=== PATIENT | male | born 1955 | race Caucasian/White ===

== ENCOUNTER → 2017-07-26 | Outpatient (CLI) | payer BC ==
[~2017-07-26] MED LIST: GADAVIST IV PRN
--- NOTE | 2017-07-26 11:21 | DIAGNOSTIC IMAGING REPORT ---
PROSTATE MRI COMBO CLINICAL HISTORY: 61 years-old Male presenting with ELEVATED PSA PSA 6.2 03/19. PSA 6.2 ng/mL. TECHNIQUE: Multisequence, multiplanar MR imaging of the prostate was performed before and after the administration of intravenous contrast. Additional postprocessing was performed on a separate [employer] workstation by the radiologist for 3-D volumetric segmentation of the prostate and contouring of region(s) of interest ([id number]) for targeting. COMPARISON: None. FINDINGS: Prostate: The prostate measures 6.4 x 4.7 x 5.7 cm (DynaCAD prostate boundary segmentation volume 88 mL). Moderate changes of benign prostatic hyperplasia. Precontrast T1 weighted imaging demonstrates no evidence of intrinsic T1 hyperintensity to suggest hemorrhage. Asymmetric atrophy of the left seminal vesicle noted. No suspicious lesion is apparent in the transition or peripheral zones. Focal ovoid heterogeneously T2 hypointense focus in the left transition zone in the mid gland without corresponding diffusion abnormality, likely stromal predominant BPH nodule. Bladder: Bladder wall thickening likely indicating chronic outlet obstruction. Bowel: Visualized portion of the rectum normal. Peritoneum: No free fluid in the pelvis. Right inguinal hernia is noted containing the right testicle and trace fluid. Lymph nodes: No lymphadenopathy in the visualized portion of the pelvis. Vasculature: Iliac vessels patent. Osseous structures: Normal bone marrow signal intensity. IMPRESSION: 1. No suspicious lesions for targeted biopsy. 2. Benign prostatic hyperplasia. 3. Right inguinal hernia is noted containing the right testicle. Electronically signed by: Blaze Chery M.D. 07/26/2017 11:20 AM Dictated Date/Time: 07/26/2017 10:45 AM
== END | disposition home or self-care (01) ==
LOC: C.MRIBC 08:41
PROVIDERS: ATTEND Urology
DX: R97.20 Elevated prostate specific antigen [PSA] (principal); N40.0 Benign prostatic hyperplasia without lower urinary tract symptoms; K40.90 Unilateral inguinal hernia, without obstruction or gangrene, not specified as recurrent

== ENCOUNTER → 2018-06-02 | Outpatient (CLI) | payer OTHER ==
--- NOTE | 2018-06-02 09:03 | DIAGNOSTIC IMAGING REPORT ---
PELVIS/BILATERAL HIP 2 VIEWS CLINICAL HISTORY: B/L HIP PAIN pain COMPARISON STUDY: No previous studies for comparison. FINDINGS: Mild/moderate degenerative change of the hip joints bilaterally. Mild peripheral osteophytic reaction bilaterally. No evidence for acetabular protrusion. No evidence for fracture or dislocation. IMPRESSION: Moderate degenerative changes of hips bilaterally. No acute process. The above report was generated using voice recognition software. It may contain grammatical, syntax or spelling errors. Electronically signed by: Doyle Anderson M.D. 06/02/2018 9:02 AM Dictated Date/Time: 06/02/2018 9:01 AM
== END | disposition home or self-care (01) ==
LOC: C.RAD1850 08:43
PROVIDERS: ATTEND Family Medicine
DX: M25.552 Pain in left hip (principal)

== ENCOUNTER 2022-09-26 05:13 | Observation (INO) ==
--- NOTE | 2022-09-06 09:56 | PAT Medication Instructions ---
Medication Instructions Date of Service September 06, 2022 Home Medications Medication Instructions Recorded lansoprazole 30 mg capsule,delayed See Rx Instructions .Route 12/15/19 release .COMPLEX #90 caps alfuzosin 10 mg tablet,extended 10 mg PO DAILY #90 tabs 04/06/22 release 24 hr finasteride 5 mg tablet 5 mg PO DAILY #90 tabs 04/06/22 azelastine-fluticasone 137 mcg-50 mcg/spray nasal spray 1 spray intranasal BID PRN montelukast 10 mg tablet 10 mg PO HS multivitamin 1 tab PO QAM simvastatin 20 mg tablet 20 mg PO HS trazodone 50 mg tablet 25 mg PO HS lansoprazole 30 mg capsule,delayed release See Rx Instructions .Route .COMPLEX alfuzosin 10 mg tablet,extended release 24 hr 10 mg PO DAILY finasteride 5 mg tablet 5 mg PO DAILY albuterol 90 mcg/actuation aerosol inhaler 90 mcg inhalation QID PRN fluticasone propionate 50 mcg/actuation nasal spray,suspension 1 spray intranasal Q12H PRN naproxen sodium 220 mg tablet (Aleve) 220 mg PO Q8H PRN omega-3 fatty acids 1,000 mg PO QAM Continue as directed lansoprazole 30 mg capsule,delayed release See Rx Instructions .Route .COMPLEX alfuzosin 10 mg tablet,extended release 24 hr 10 mg PO DAILY finasteride 5 mg tablet 5 mg PO DAILY ASK your surgeon for instructions naproxen sodium 220 mg tablet (Aleve) 220 mg PO Q8H PRN STOP taking 2 weeks before surgery omega-3 fatty acids 1,000 mg PO QAM DO NOT take the morning of surgery multivitamin 1 tab PO QAM Take morning of surgery With a small sip of water, OTHERWISE NOTHING TO EAT OR DRINK AFTER MIDNIGHT: azelastine-fluticasone 137 mcg-50 mcg/spray nasal spray 1 spray intranasal BID PRN(if needed) albuterol 90 mcg/actuation aerosol inhaler 90 mcg inhalation QID PRN(use if needed; please bring with you to hospital day of surgery if possible) fluticasone propionate 50 mcg/actuation nasal spray,suspension 1 spray intranasal Q12H PRN(if needed) Take evening before surgery azelastine-fluticasone 137 mcg-50 mcg/spray nasal spray 1 spray intranasal BID PRN(if needed) montelukast 10 mg tablet 10 mg PO HS simvastatin 20 mg tablet 20 mg PO HS trazodone 50 mg tablet 25 mg PO HS albuterol 90 mcg/actuation aerosol inhaler 90 mcg inhalation QID PRN(if needed) fluticasone propionate 50 mcg/actuation nasal spray,suspension 1 spray intranasal Q12H PRN(if needed) Other Notes If you have any questions please call us at [phone] or [phone] or [phone] or [phone]
--- NOTE | 2022-09-10 10:43 | Anesthesiology Consultation ---
Date of Service September 10, 2022 Assessment & Plan (1) Encounter for pre-operative examination: - will attempt to obtain copy of Holter monitor report completed earlier this year at PCP office. Chart Review Chart Review: Pending: Refer to Additional Notes / Consult section and Patient seen in Pre Admission Testing Teaching & Discussion Pre-Anesthesia Teaching/Discussion Notes: Instructed NPO after midnight before surgery, except medications with 15 cc of water. Medication instructions provided according to the PAT guidelines. History Surgery Operation Date: 09/26/22 07:00 Proposed Procedures p Left Total Hip Arthroplasty - Herber Swartz MD Height/Weight Height: 6 ft 2 in Weight: 86.183 kg Allergies Allergy/AdvReac Type Severity Reaction Status Date / Time oxycodone Allergy Mild Hives Verified 09/06/22 08:31 Medications Home Medications Medication Instructions Recorded Confirmed Last Taken azelastine-fluticasone 137 mcg-50 1 spray intranasal BID PRN SINUS 07/25/18 09/06/22 07/27/18 mcg/spray nasal spray CONGESTION montelukast 10 mg tablet 10 mg PO HS 07/25/18 09/06/22 07/26/18 multivitamin 1 tab PO QAM 07/25/18 09/06/22 07/27/18 simvastatin 20 mg tablet 20 mg PO HS 07/25/18 09/06/22 07/26/18 trazodone 50 mg tablet 25 mg PO HS 07/25/18 09/06/22 07/27/18 alfuzosin 10 mg tablet,extended 10 mg PO DAILY #90 tabs 04/06/22 09/06/22 Unknown release 24 hr finasteride 5 mg tablet 5 mg PO DAILY #90 tabs 04/06/22 09/06/22 Unknown albuterol 90 mcg/actuation aerosol 90 mcg inhalation QID PRN 09/06/22 09/06/22 Unknown inhaler Shortness Of Breath fluticasone propionate 50 1 spray intranasal Q12H PRN 09/06/22 09/06/22 Unknown mcg/actuation nasal Allergy Symptoms spray,suspension naproxen sodium 220 mg tablet 220 mg PO Q8H PRN Pain 09/06/22 09/06/22 Unknown (Aleve) omega-3 fatty acids 1,000 mg PO QAM 09/06/22 09/06/22 Unknown Past Medical History Medical History (Updated 09/10/22 @ 10:50 by Marialuisa Conley PA-C) BPH (benign prostatic hyperplasia) GERD (gastroesophageal reflux disease) controlled, stable per pt Hiatal hernia Osteoarthritis Palpitations (summer 2021) stress induced, wore a holter monitor, denies recurrence - does not follow w/ cardio- done thru PCP- Dr Schafer office Seasonal allergies uses inhaler prn-last rescue inhaler use > 1 yr ago Patient denies h/o stroke, seizures, heart attack, heart failure, DM, HTN, blood clots or blood transfusions. Exercise / Class Metabolic Activity II 4-5 Yardwork/Stairs/Walk up hill (denies CP or SOB with 1 FOS) Past Family History Family History Family/Other No problems noted. Other No family history of adverse response to anesthesia Denies family history of Crohn's disease Colorectal cancer Ulcerative colitis Past Surgical History Surgical History History of arthroscopy X 2 -LEFT KNEE History of carpal tunnel release LEFT WRIST History of colonoscopy (07/2018) History of endoscopic sinus surgery History of esophagogastroduodenoscopy (EGD) History of open reduction and internal fixation (ORIF) procedure RIGHT WRIST Hx of foot surgery GREAT TOE Past Anesthesia History No Hx of Anesthesia Complications and No Family Hx of Anesthesia Complications History of PONV No Hx of PONV and No Hx of Motion Sickness Social History Smoking Status: Never smoker Do You Dip or Chew Tobacco: No Hx Alcohol Use: Yes Alcohol type: hard liquor alcohol intake frequency: 0-2 drinks per day Hx Substance Use: No substance use type: does not use Review of Systems Snoring, denies witnessed apneas. Patient denies chest pain, shortness of breath, dyspnea on exertion, fever, chills, cough, or wheezing. Physical Exam Vital Signs Vitals BP 125/80 P 60 TEMP 98.3 SP02 97% on RA RESP 18 Physical Full cervical extension range of motion without pain TMD 3.5 finger breadths Mallampati Score 1 Dentition: intact, denies chipped or loose teeth, caps/crowns, implants or bridges Lungs: normal respiratory effort. Clear throughout to auscultation, no adventitious breath sounds Cardiac: regular rate and rhythm, no murmurs noted Carotid arteries: negative bruit bilat Lab Results Anesthesia Preop Results Results Anesthesia Widget: WBC 3.46 K/ul (4.8-10.8) L 09/10/22 Hgb 14.7 g/dl (14.0-18.0) 09/10/22 Hct 41.8 % (40.1-51.0) 09/10/22 Plt 233 K/uL (130-400) 09/10/22 Na 140 mmol/L (136-145) 09/10/22 K 4.1 mmol/L (3.5-5.1) 09/10/22 Cl 105 mmol/L (98-107) 09/10/22 CO2 32 mmol/L (21-32) 09/10/22 BUN 18 mg/dl (6-23) 09/10/22 Creat 0.87 mg/dl (0.6-1.4) 09/10/22 Glucose Level 93 mg/dl (70-99(Fasting)) 09/10/22 PT 11.4 Seconds (9.0-12.0) 09/10/22 PTT 30.5 Seconds (21.0-31.0) 09/10/22 INR 1.1 (0.9-1.1) 09/10/22 Urine Color Yellow 09/10/22 Urine Appearance Clear (Clear) 09/10/22 Urine pH 7.5 (4.5-7.5) 09/10/22 Urine Specific [place] 1.011 (1.000-1.030) 09/10/22 Urine Protein Negative (Negative) 09/10/22 Urine Glucose (UA) Negative (Negative) 09/10/22 Urine Ketones Negative (Negative) 09/10/22 Urine Blood Negative (Negative) 09/10/22 Urine Nitrite Negative (Negative) 09/10/22 Urine Bilirubin Negative (Negative) 09/10/22 Urine Urobilinogen Negative (Negative) 09/10/22 Urine Leukocyte Esterase Negative (Negative) 09/10/22 Blood Type O Positive 09/10/22 Antibody Screen NEGATIVE 09/10/22 Testing Laboratory Results Case discussed with Dr. Pedersen who advised nothing further is needed from his standpoint regarding leukopenia. Electrocardiogram Date: 04/27/22 Sinus rhythm with 1st degree AV block, rate 66 bpm Chest X-Ray Date: 09/10/22 No prior studies are available for comparison at the time of dictation. The car diomediastinal silhouette is unremarkable. The lungs and pleural spaces are clear. There is no pneumothorax. The bony thorax appears intact. IMPRESSION: No active disease in the chest. Echocardiogram Date: 05/16/22 EF 65% No regional wall motion abnormalities of LV Mildly dilated RA Prox ascending aorta dilated 3.8 cm Mild mitral regurgitation Mild tricuspid regurgitation COVID-19 Risk Screen Screening Information COVID-19 Screen Date: 09/10/22 Exposure 21 Days Family/Household +COVID Last 21 Days: No Exposure 10 Days Any COVID Exposure Last 10 Days: No Symptoms Last 10 Days Experienced COVID Sx Last 10 Days: No + COVID 0-90 Days COVID + in Last 0-90 Days: No
--- NOTE | 2022-09-18 15:12 | History & Physical Report ---
Date of Service September 18, 2022 Assessment & Plan (1) Degenerative joint disease of left hip: Plan: Postoperative prescriptions for either hydrocodone or oxycodone and Coumadin will be provided at discharge from the hospital. Anticipate discharge to home with outpatient PT. The patient is aware of the COVID-19 risks associated with surgery. He is currently asymptomatic of any COVID-19 symptoms. PDMP was checked and there were no concerning findings. He already has access to a cane and walker. Followup appointment has been made for 10/11 at 1:30 p.m. for staple removal. History of Present Illness Chief Complaint: Left hip pain Primary Care Provider: Trya Schafer MD This 66-year-old male presents for his preoperative history and physical. He is scheduled to undergo a left hip total hip arthroplasty on 09/26/2022. The patient has had left hip and groin pain since late January 2021. No specific injury. He described a catching feeling in his groin. It was constant. Worse in certain positions. There is pain when twisting to the right. No numbness or tingling. He has tried extensive physical therapy as well as intra-articular cortisone injections without lasting improvement. He elects to proceed with surgical intervention in hopes of improving his pain control and function. Preoperative imaging has been obtained. He does note occasional night pain at this point. Allergies Allergy/AdvReac Type Severity Reaction Status Date / Time oxycodone Allergy Mild Hives Verified 09/06/22 08:31 Home Medications Medication Instructions Recorded Confirmed Type azelastine-fluticasone 137 mcg-50 1 spray intranasal BID PRN SINUS 07/25/18 09/06/22 History mcg/spray nasal spray CONGESTION montelukast 10 mg tablet 10 mg PO HS 07/25/18 09/06/22 History multivitamin 1 tab PO QAM 07/25/18 09/06/22 History simvastatin 20 mg tablet 20 mg PO HS 07/25/18 09/06/22 History trazodone 50 mg tablet 25 mg PO HS 07/25/18 09/06/22 History alfuzosin 10 mg tablet,extended 10 mg PO DAILY #90 tabs 04/06/22 09/06/22 Rx release 24 hr finasteride 5 mg tablet 5 mg PO DAILY #90 tabs 04/06/22 09/06/22 Rx albuterol 90 mcg/actuation aerosol 90 mcg inhalation QID PRN 09/06/22 09/06/22 History inhaler Shortness Of Breath fluticasone propionate 50 1 spray intranasal Q12H PRN 09/06/22 09/06/22 History mcg/actuation nasal Allergy Symptoms spray,suspension naproxen sodium 220 mg tablet 220 mg PO Q8H PRN Pain 09/06/22 09/06/22 History (Aleve) omega-3 fatty acids 1,000 mg PO QAM 09/06/22 09/06/22 History Past Med/Surg History Medical History BPH (benign prostatic hyperplasia) GERD (gastroesophageal reflux disease) controlled, stable per pt Hiatal hernia Osteoarthritis Palpitations (summer 2021) stress induced, wore a holter monitor, denies recurrence - does not follow w/ cardio- done thru PCP- Dr Schafer office Seasonal allergies uses inhaler prn-last rescue inhaler use > 1 yr ago Surgical History History of arthroscopy X 2 -LEFT KNEE History of carpal tunnel release LEFT WRIST History of colonoscopy (07/2018) History of endoscopic sinus surgery History of esophagogastroduodenoscopy (EGD) History of open reduction and internal fixation (ORIF) procedure RIGHT WRIST Hx of foot surgery GREAT TOE Family History (Updated 09/18/22 @ 15:09 by Dejuan Guzman PA-C) Family/Other No problems noted. Other Depression Leukemia No family history of adverse response to anesthesia Parkinson disease Denies family history of Crohn's disease Colorectal cancer Ulcerative colitis Social History (Updated 09/18/22 @ 15:12 by Dejuan Guzman PA-C) Smoking Status: Never smoker Second Hand Exposure: No; Hx Alcohol Use: Yes Alcohol type: hard liquor Hx Substance Use: No Preferred Language: Albanian Communication Ability: Effective Hearing Ability: Normal Environmental Safety Specialist Required: No Beliefs That Will Affect Care: None marital status: Current Living Situation: Spouse Feels Safe at Home: Yes Assistive Devices: Contacts and Glasses Review of Systems Review of Systems: All systems reviewed & are unremarkable except as noted in HPI & below A total of 10 systems were reviewed. Physical Exam Physical Exam: Vitals: Height 186 cm, weight 89 kg, BMI 25.7, temperature 36.5, blood pressure 128/72, pulse 70, respirations 18, O2 saturation 97% on room air. General: Well-developed, well-nourished middle-aged male in no acute distress. Sitting in a chair. Alert and oriented. Skin: Warm and dry with good turgor. No rashes or lesions. No ecchymosis or erythema. HEENT: Normocephalic, atraumatic. Eyes: PERRLA, EOMI. Nares patent bilaterally without turbinate enlargement. Oropharynx exam deferred due to COVID precautions. Heart: RRR. No MGR. Lungs: Clear to auscultation bilaterally. No crackles, rhonchi or wheezing. Good air movement. Abdomen: Bowel sounds present x4. Soft and nontender. No organomegaly. No masses. Musculoskeletal: Left hip evaluation reveals no obvious asymmetry or deformity. He continues to have good flexion. External rotation of around 35 degrees. Internal rotation of only around 5 degrees beyond neutral. No pain with palpation over the IT band or greater trochanter. He does have pain with palpation over the anterior flexion crease and into the groin. No pain at the knee. No palpable crepitus with motion of the hip. Ambulating with a slightly antalgic gait. Strength is 5/5 for resisted hip flexion, abduction, and adduction. Neurologic: Gross sensation is intact across both lower extremities by soft touch. Peripheral pulses are 2+. Results & Data Results & Data ([facility]) Diagnostic Findings Radiographic imaging previously obtained shows femoral acetabular impingement along with end-stage DJD of the left hip. Code Status & VTE Plan VTE Prophylaxis Plan VTE Prophylaxis will be ordered: Yes
--- NOTE | 2022-09-26 05:56 | History & Physical Bridge Note ---
Date of Service September 26, 2022 History & Physical Bridge Note I have examined the patient, reviewed the History & Physical and in the interval since the performance of the History & Physical I have noted the following changes of clinical significance: consent verified/site verified.no changes noted
[2022-09-26] MEDS ORDERED: ceFAZolin 2000MG 2,000 MG/15 ML SYR IV SCH (06:00)
[2022-09-26] MEDS ORDERED: LR 500ML BOLUS, THEN 15ML/HR IV SCH (06:00)
[2022-09-26] MEDS ORDERED: TRANEXAMIC ACID 1,000 MG **IV Pre-op IV SCH (06:00)
[2022-09-26] MEDS ORDERED: ROPIVACAINE 0.5% HCL/PF 150 MG, BUPIVACAINE 0.75% MPF 20 ML, EPINEPHrine 0.15 MG, Ketor... INFIL SCH (06:00)
[2022-09-26] MEDS ORDERED: LR 60ML/HR IV SCH (06:00)
[2022-09-26] MEDS ORDERED: BUPIVACAINE 0.5 % 5 MG/1 ML PF 10ML VIAL ONE (06:29)
[2022-09-26] MEDS ORDERED: MIDAZOLAM HCL 1 MG/ML 2ML VIAL ONE (06:34)
[2022-09-26] MEDS ORDERED: ORTHO JOINT ANESTHETIC ONE (06:35)
[2022-09-26] MEDS ORDERED: fentaNYL citrate 100 MCG/2 ML VIAL ONE (06:35)
[2022-09-26] MEDS ORDERED: ATROPINE SULFATE 0.1 MG/ML 10ML SYR IV PRN (07:11)
[2022-09-26] MEDS ORDERED: ONDANSETRON INJ 2 MG/ML 2 ML VIAL IV PRN ×2 (07:11→10:03)
[2022-09-26] MEDS ORDERED: ePHEDrine sulfate 50 MG/ML AMP IV PRN (07:11)
[2022-09-26] MEDS ORDERED: fentaNYL citrate 100 MCG/2 ML VIAL IV PRN (07:11)
[2022-09-26] MEDS ORDERED: PROPOFOL IV EMULSION 10 MG/ML 20 ML VIAL IV ONE ×2 (07:20→08:18)
[2022-09-26] MEDS ORDERED: ONDANSETRON INJ 2 MG/ML 2 ML VIAL ONE (07:20)
[2022-09-26] MEDS ORDERED: LIDOCAINE 2% MPF LOCAL 5 ML VIAL INFIL ONE (07:20)
--- NOTE | 2022-09-26 08:20 | Post Operative Brief Note ---
Immediate Post Op Note v1 Date of Surgery September 26, 2022 Pre & Post Diagnosis Operation Date: 09/26/22 07:00 Pre-Op Diagnosis: Left Hip Degenerartive Joint Disease Post-Op Diagnosis: Left Hip Degenerartive Joint Disease I identified the patient and participated in the time-out.: Yes Procedure Operation Date: 09/26/22 07:00 Actual Procedures p Left Total Hip Arthroplasty--Uncemented(Left) - Herber Swartz MD Surgeon Herber Swartz MD Leasing Sales Consultant Maya/Megan Estimated Blood Loss 50 Findings Consistent with Post-Op Diagnosis
--- NOTE | 2022-09-26 08:38 | Operative Report ---
Post Operative Report Pre & Post Diagnosis Operation Date: 09/26/22 07:00 Pre-Op Diagnosis: Left Hip Degenerartive Joint Disease Post-Op Diagnosis: Left Hip Degenerartive Joint Disease I identified the patient and participated in the time-out.: Yes Procedure Operation Date: 09/26/22 07:00 Actual Procedures p Left Total Hip Arthroplasty--Uncemented(Left) - Herber Swartz MD Surgeon LEANNE Swartz MD Pattern Perforating Machine Operator Maya/Megan MCNEAL Estimated Blood Loss 50 Findings Consistent with Post-Op Diagnosis see operative report Specimens see operative report Drains none Complications none Disposition Accompanied Patient To Recovery: Yes Indications This 66 year old male presented to the office with complaints of persisting left hip pain. He had tried conservative care measures including physical therapy, without improvement. He elected to proceed with surgical intervention after being educated about potential risks and outcomes. Preoperative imaging was obtained. Description of Procedure Patient was administered a spinal anesthetic and then taken to the operating room where he was given sedation. He was prepped and draped in the usual sterile fashion. Please see Dr. Swartz's operative report for specifics of the procedure. I was present for the entire case from initial patient positioning through final wound closure. Assistance was provided in tissue retraction, hemostasis, trial implant placement, final implant placement, and final wound closure. Patient was taken to the recovery room in satisfactory condition. I attest to the content of the Intraoperative Record and any orders documented therein. Any exceptions are noted below.
--- NOTE | 2022-09-26 09:00 | Progress Notes ---
DATE OF SURGERY: 09/26/2022 SUBJECTIVE: Status post left total hip replacement. The patient has no major issues. He is awake a nd alert. He still has a spinal in place so neurologic exam was blocked by that. OBJECTIVE: Vital signs are stable. He is afebrile. Denies chest pain, shortness of breath, fever, chills, nausea, vomiting, headache. DATA: X-rays are pending. Leg lengths are good. ASSESSMENT: Doing well. Continue with care pathway. Check x-rays postoperatively. Mobilize. Disch arge tomorrow or sooner if he desires. Job ID: [id number]
--- NOTE | 2022-09-26 09:09 | Discharge Summary (DS) ---
DATE OF ADMISSION: 09/26/2022 DATE OF DISCHARGE: 09/27/2022. CHIEF COMPLAINT: Left hip pain. HISTORY OF PRESENT ILLNESS: The patient is admitted for elective left total hip replacement. To date hospital course has been uneventful. PREADMISSION MEDICATIONS: Include allergy medications, nasal spray, montelukast, cholesterol medicine, simvastatin, trazodone, alfuzosin, finasteride, albuterol, and vitamins. ALLERGIES: OXYCODONE, WHICH PRODUCES HIVES. PAST MEDICAL HISTORY: Remarkable for BPH, GERD, hiatal hernia, osteoarthritis, palpitations, seasonal allergies. PAST SURGICAL HISTORY: Remarkable for knee arthroscopies, carpal tunnel release, colonoscopies, sinus surgery, EGD, wrist fusion surgery, great toe surgery. FAMILY HISTORY: Remarkable for leukemia, Parkinson's disease. SOCIAL HISTORY: Does not smoke. Social alcohol. [place] speaker. Lives with spouse. Wears glasses. REVIEW OF SYSTEMS: Noncontributory. ASSESSMENT: Doing well status post left total hip replacement. Discharge to home tomorrow with outpatient services. He desires to leave earlier, that is fine. Job ID: [id number] [facility]
--- NOTE | 2022-09-26 09:18 | Operative Report (OR) ---
DATE OF PROCEDURE: 09/26/2022 PREOPERATIVE DIAGNOSIS: Osteoarthritis, left hip. POSTOPERATIVE DIAGNOSIS: Osteoarthritis, left hip. OPERATION PERFORMED: Noncemented left total hip replacement. SUMMARY OF IMPLANTS: Size 50 acetabular shell sector, hole eliminator, cancellous screw 6.5 x 30, po lyethylene liner, 32 x 50 neutral, 5 high offset Tri-Lock stem, 32+5 ceramic head. ESTIMATED BLOOD LOSS: 50 mL. CRYSTALLOID: Per anesthesia. PATHOLOGY: Pending on bone. DVT prophylaxis per protocol. PERIOPERATIVE SITUATION: Medically cleared male with intractable hip pain with x-rays revealing end- stage disease, significant cam lesion, and an os acetabuli. He has failed conservative management. At this point in time, wants to proceed with surgical treatme nt. DESCRIPTION OF PROCEDURE: The patient was appropriately identified, site verified, consent verified. Antibiotics were confirmed as being given. The patient was placed in right lateral decubitus posit ion. Left lower extremity prepped and draped in usual routine fashion. A posterior approach to the hip was then made. Sharp dissection carried through skin, blunt dissection down to the fascia. The IT band was then split as well as the gluteus kerwin fascia. Retractors were placed. Care taken to protect the sciatic nerve. The short external rotators were released. The capsule was T'd and pres erved. The hip dislocated. The femoral neck resected. It was markedly deformed and arthritic. Edilberto tabular exposure was achieved with multiple retractors. Care taken to protect the sciatic nerve. Th e os acetabuli was excised. The labrum was excised. It was all degenerated and torn. Serial reamin g was then carried up to a 50 and a 50 cup impacted into appropriate anteversion and inclination and secured with an additional 6.5 x 30 screw with excellent purchase. Trial liner was then seated. Ost eophytes resected. The hip was then flexed, internally rotated. Proximal femur prepared with a box machine operator, canal finder, lateralizing rasp, serial broaching up to a size 5 and then trial offset with a standard and high offset provided, standard offset gave us excellent stability. The +5 head gave eq ual leg lengths. The trial implants were then removed. The wound irrigated with Betadine and Pulsavac. The permanent hole eliminator and liner seated. Permanent stem and head seated. The hip reduced. It was stable in all planes. Leg lengths were excellent. The wound was then irrigated one final time and closed usi ng #2 Vicryl for the capsule, for the short external rotators, for the quadratus femoris, for the glu teus kerwin and IT band fascia, for the deep fat, and then 2-0 Vicryl for the subcutaneous layer and stainless steel clips for skin. Appropriate dressing applied. The patient was transferred to [facility] room in satisfactory condition, having tolerated the procedure well. PATHOLOGY: Pending on bone. ESTIMATED BLOOD LOSS: 30 mL. Job ID: [id number]
--- NOTE | 2022-09-26 09:23 | XRay Report ---
XR pelvis 1-2V routine HISTORY: 66 years-old Male In PACU - Post Surgical left hip total joint arthroplasty COMPARISON: Pelvis and left hip radiographs 09/10/2022 TECHNIQUE: AP view the pelvis FINDINGS: Moderate osteoarthritis of the right hip with cam-type morphology of femoral acetabular impingement r edemonstrated. Left hip total joint arthroplasty appears to be in satisfactory positioning. Expected postoperative soft tissue swelling and deep tissue air with lateral skin tyrell. No acute fracture o r unexpected opaque foreign body. IMPRESSION: Left hip total joint arthroplasty with expected postoperative changes. ACT 112: Negative or not required by law. The above report was generated using voice recognition software. It may contain grammatical, syntax o r spelling errors. Electronically signed by: Robert Chery M.D. 09/26/2022 9:22 AM
--- NOTE | 2022-09-26 09:51 | Anesthesiology Progress Note ---
Date of Service September 26, 2022 Anesthesia Post Procedure Vital Signs Vital Signs: Temp Pulse Resp BP Pulse Ox O2 Del Method O2 Flow Rate 09/26/22 09:45 36.4 C L 49 L 12 96/63 L 98 Room Air 09/26/22 09:35 52 L 10 L 104/56 L 98 Room Air 09/26/22 09:25 48 L 10 L 103/59 L 100 Room Air 09/26/22 09:15 51 L 10 L 104/59 L 100 Room Air 09/26/22 09:05 50 L 12 94/56 L 100 Room Air 09/26/22 08:55 54 L 10 L 99/51 L 98 Room Air 09/26/22 08:45 56 L 12 92/58 L 100 Oxymask 5 09/26/22 08:36 36.2 C L 61 12 95/48 L 97 Oxymask 5 09/26/22 05:48 36.8 C 18 120/70 97 Room Air Pain Intensity Left Hip: Pain Intensity: 5 Transfer of Care Handoff Completed per policy Notes Mental Status: alert / awake / arousable Patient Amnestic to Procedure: Yes Nausea / Vomiting: adequately controlled Pain: adequately controlled Airway Patency, RR, SpO2: stable & adequate BP & HR: stable & adequate Hydration State: stable & adequate Neuraxial Anesthesia: was administered and sensory block is resolving Anesthetic Complications: no major complications apparent and Pt Satisfied with anesthetic care
[2022-09-26] MEDS ORDERED: HYDROmorphone INJ 0.5 MG/0.5 ML SYR IV PRN (10:03)
[2022-09-26] MEDS ORDERED: METOCLOPRAMIDE HCL INJ 5 MG/ML 2 ML VIAL IV PRN (10:03)
[2022-09-26] MEDS ORDERED: FLUTICASONE PROPIONATE NA SPR 16 GM BTL NAE PRN (10:03)
[2022-09-26] MEDS ORDERED: SODIUM CHLORIDE 0.9% 1000ML 1,000 ML IV SCH (10:03)
[2022-09-26] MEDS ORDERED: ALUMINUM/MAGNESIUM SUSP 30 ML UDC PO PRN (10:03)
[2022-09-26] MEDS ORDERED: bisacodyL 10 MG SUPP PR PRN (10:03)
[2022-09-26] MEDS ORDERED: TAMSULOSIN HCL 0.4 MG CAP PO PRN (10:03)
[2022-09-26] MEDS ORDERED: NALOXONE HCL 0.4 MG/1 ML VIAL/CARP IV PRN (10:03)
[2022-09-26] MEDS ORDERED: diphenhydrAMINE 50 MG/ML VIAL IV PRN (10:03)
[2022-09-26] MEDS ORDERED: MAGNESIUM HYDROXIDE SUSP 30 ML UDC PO PRN (10:03)
[2022-09-26] MEDS ORDERED: ALBUTEROL HFA 8 GM INHALER INH PRN (10:07)
[2022-09-26] MEDS ORDERED: AZELASTINE HCL 0.1% NASAL 200 SPRAYS/27,400 MCG BTL PRN (10:17)
[2022-09-26] MEDS: DOCUSATE SODIUM 100 MG CAP PO SCH ×2 (11:22→20:12)
[2022-09-26] MEDS: ALFUZOSIN HCL 10 MG TAB PO SCH (11:22)
[2022-09-26] MEDS: FINASTERIDE 5 MG TAB PO SCH (11:23)
[2022-09-26] MEDS: MULTIVITAMIN TAB PO SCH (11:23)
[2022-09-26] MEDS: KETOROLAC 30 MG/ML VIAL IV SCH ×3 (11:32→22:57)
--- NOTE | 2022-09-26 13:24 | Progress Notes ---
DATE OF NOTE: 09/26/2022 SUBJECTIVE: Postop check status post left total hip replacement. The patient is up, already standin g, walking around. OBJECTIVE: His wound dressing clean, dry and intact. Femoral sciatic nerve function is good. He monet s difficulty voiding. He is trying to void. ASSESSMENT AND PLAN: At this point in time, he feels distended. We will have him get straight usman terization and continue his prostate obstruction medication. He is already on Flomax. Job ID: [id number]
[2022-09-26] MEDS ORDERED: ORTHO WARFARIN NOMOGRAM SCH (14:00)
[2022-09-26] MEDS: ACETAMINOPHEN 500 MG TAB PO SCH ×2 (14:01→21:29)
[2022-09-26] MEDS ORDERED: TRANEXAMIC ACID / 0.7% NACL 1,000 MG/100 ML BAG IV SCH (14:45)
[2022-09-26] MEDS ORDERED: WARFARIN SOD 5 MG TAB PO ONE (16:00)
[2022-09-26] MEDS: ASCORBIC ACID 500 MG TAB PO SCH (16:23)
[2022-09-26] MEDS: FERROUS GLUCONATE 324 MG TAB PO SCH (16:24)
[2022-09-26] MEDS: ceFAZolin 2000MG 2,000 MG/15 ML SYR IV SCH ×2 (16:25→22:56)
[2022-09-26] MEDS ORDERED: traZODone HCL 50 MG TAB PO SCH (21:00)
[2022-09-26] MEDS ORDERED: SENNA 8.6 MG TAB PO SCH (21:00)
[2022-09-26] MEDS ORDERED: ATORVASTATIN 20 MG TAB PO SCH (21:00)
[2022-09-27] MEDS: ACETAMINOPHEN 500 MG TAB PO SCH (05:48)
[2022-09-27] MEDS: KETOROLAC 30 MG/ML VIAL IV SCH (05:48)
--- NOTE | 2022-09-27 07:20 | Progress Notes ---
SUBJECTIVE: Postop check postoperative day #1, status post left total hip replacement. The patient is sitting up in bed. Denies chest pain, shortness of breath, fever, chills, nausea, vom iting, or headache. OBJECTIVE: Vital signs are stable. He is afebrile. On neurovascular check, femoral sciatic nerve is normal. Calves nontender. Wound dressing clean, dry, and intact. ASSESSMENT AND PLAN: He is able to void and able to eat and drink. He has been up walking in the [place]. At this point, will discharge him to home today. PT/OT first. Coumadin dose per nomogram pr ior to discharge. Job ID: [id number]
[2022-09-27] MEDS ORDERED: dexAMETHasone 10 MG in SYRINGE 0 ML IV SCH (08:00)
[2022-09-27 08:10] LABS: Basophils # (auto) 0.02 K/uL (0-0.2); Basophils % (auto) 0.3 %; Eosinophils # (auto) 0.03 K/uL (0-0.50); Eosinophils % (auto) 0.5 %; Hematocrit (blood only) 36.7 % (40.1-51.0); Hemoglobin 12.7 g/dl (14.0-18.0); Immature Granulocytes # (auto) 0.03 K/uL (0.00-0.02); Immature Granulocytes % (auto) 0.5 %; Lymphocytes % (auto) 9.7 %; Mean Corpuscular Hemoglobin 31.8 pg (25.0-34.0); Mean Corpuscular Hgb Conc 34.6 g/dL (32.0-36.0); Mean Platelet Volume 9.7 fL (9.4-12.4); Monocytes # (auto) 0.63 K/uL (0.24-0.82); Monocytes % (auto) 10.2 %; Neutrophils # (auto) 4.85 K/uL (1.4-6.5); Neutrophils % (auto) 78.8 %; Platelet Count 196 K/uL (130-400); RDW Coefficient of Variation 12.3 % (11.5-14.5); RDW Standard Deviation 41.5 fL (36.4-46.3); Red Blood Count 3.99 M/uL (4.63-6.08); White Blood Count 6.16 K/ul (4.8-10.8)
[2022-09-27] MEDS: FERROUS GLUCONATE 324 MG TAB PO SCH (08:11)
[2022-09-27] MEDS: ASCORBIC ACID 500 MG TAB PO SCH (08:11)
[2022-09-27] MEDS: DOCUSATE SODIUM 100 MG CAP PO SCH (08:12)
[2022-09-27] MEDS: ALFUZOSIN HCL 10 MG TAB PO SCH (08:12)
[2022-09-27] MEDS: FINASTERIDE 5 MG TAB PO SCH (08:13)
[2022-09-27] MEDS: MULTIVITAMIN TAB PO SCH (08:13)
[2022-09-27 08:16] LABS: INR 1.1 (0.9-1.1); Prothrombin Time 11.6 Seconds (9.0-12.0)
[2022-09-27 08:50] LABS: BUN Creatinine Ratio 19.3 (10-20); Calcium 9.1 mg/dl (8.5-10.1); Creatinine Clr Calc Pharmacy 104.5 ml/min; Est GFR (African American) 107.8 ml/min; Potassium 4.1 mmol/L (3.5-5.1)
--- NOTE | 2022-09-27 12:26 | Orthopedic Progress Note ---
Date of Service September 27, 2022 Assessment & Plan (1) S/P total hip arthroplasty: Plan: Patient was educated regarding today's findings. Conservative care measures were discussed. New postsurgical pressure dressing was applied by me. This can be changed on Saturday by the home health nurses. He is aware that it needs to be a pressure dressing comparable to what is in place now. Patient would like to attempt PT at home for the first 2 weeks and then do his outpatient PT at our office. Arrangements have already been made. Prescriptions for Talcott 5 mg, Zofran 4 mg, and Coumadin 2 mg have been sent to his pharmacy. He will take Coumadin 4 mg through the weekend and have his blood checked on Saturday. Written discharge instructions have been provided. Follow-up in the office in 2 weeks as scheduled for staple removal. Call with any other concerns. Admission and Anticipated Discharge Date Admission Date: September 26, 2022 Subjective Patient seen in his room this morning. He is sitting in a chair and has already finished his breakfast. He states he is feeling reasonably well. He has been using some IV medication for pain control. He feels ready to be discharged to home today. Denies any chest pain, shortness of breath, nausea, vomiting, or abdominal pain. He has been up and ambulatory using his walker. No other co mplaints. Review of Systems Review of Systems: Unchanged from yesterday. Physical Exam Physical Exam: General: Well-developed, well-nourished, middle-aged male, in no acute distress. Sitting in a chair. Alert and oriented. Conversive. Skin: Warm and dry with good turgor. No rashes. Postsurgical dressings are in place. Upon removal, he has expected postoperative edema and ecchymosis. No active bleeding from his surgical site. Milad are intact. Wound edges are well approximated. Musculoskeletal: Patient is able to rise from his chair fairly easily. He does only partial weightbearing on the left leg. Supple motion of the left hip. Intact motor function to the knee and ankle. Neurologic: Gross sensation is intact across the left leg by soft touch. Results & Data ([facility]) Vital Signs (Past 12 Hours) Vital Signs Temp Pulse Pulse Resp BP Pulse Ox O2 Del Method 09/27/22 07:53 37.0 C 78 16 126/76 97 Room Air 09/27/22 07:01 36.7 C 84 64 16 125/78 98 09/27/22 02:30 36.7 C 64 16 125/78 98 Room Air 09/27/22 00:29 16 Laboratory Results CBC obtained this morning shows a white count of 6.16. Hemoglobin 12.7 and hematocrit 36.7. INR 1.1. PRP obtained today is unremarkable.
[2022-09-27] MEDS ORDERED: WARFARIN SOD 5 MG TAB PO SCH (12:30)
== END 2022-09-27 12:30 | disposition home health service (06) ==
LOC: ASU 05:13 → 3N 05:13

== ENCOUNTER 2024-09-16 06:30 | Observation (INO) ==
--- NOTE | 2024-08-14 15:58 | PAT Medication Instructions ---
Medication Instructions Date of Service August 14, 2024 Home Medications azelastine 137 mcg-fluticasone 50 mcg/spray nasal spray 1 spray intranasal BID PRN multivitamin 1 tab PO QAM albuterol 90 mcg/actuation aerosol inhaler 90 mcg inhalation QID PRN fluticasone propionate 50 mcg/actuation nasal spray,suspension 1 spray intranasal Q12H PRN atorvastatin 20 mg tablet 20 mg PO HS alfuzosin 10 mg tablet,extended release 24 hr 10 mg PO HS finasteride 5 mg tablet 5 mg PO QAM naproxen sodium 220 mg capsule (Aleve) 440 mg PO Q12H PRN ASK your surgeon for instructions naproxen sodium 220 mg capsule (Aleve) 440 mg PO Q12H PRN DO NOT take the morning of surgery multivitamin 1 tab PO QAM Take morning of surgery With a small sip of water, OTHERWISE NOTHING TO EAT OR DRINK AFTER MIDNIGHT: finasteride 5 mg tablet 5 mg PO QAM fluticasone propionate 50 mcg/actuation nasal spray,suspension 1 spray intranasal Q12H PRN(if needed) albuterol 90 mcg/actuation aerosol inhaler 90 mcg inhalation QID PRN(use if needed; please bring with you to hospital day of surgery if possible) azelastine 137 mcg-fluticasone 50 mcg/spray nasal spray 1 spray intranasal BID PRN(if needed) Take evening before surgery atorvastatin 20 mg tablet 20 mg PO HS alfuzosin 10 mg tablet,extended release 24 hr 10 mg PO HS fluticasone propionate 50 mcg/actuation nasal spray,suspension 1 spray intranasal Q12H PRN(if needed) albuterol 90 mcg/actuation aerosol inhaler 90 mcg inhalation QID PRN(if needed) azelastine 137 mcg-fluticasone 50 mcg/spray nasal spray 1 spray intranasal BID PRN(if needed) Other Notes If you have any questions please call us at [phone] or [phone] or [phone] or [phone]
--- NOTE | 2024-08-24 14:33 | Anesthesiology Consultation ---
Date of Service August 24, 2024 Assessment & Plan (1) Encounter for pre-operative examination: - awaiting surgeon ordered PSH PCP pre-operative evaluation 09/09/24 and hematology office note if completed prior to surgery, if not will need PCP to comment if patient is cleared overall and regarding leukopenia. - PCP office note 07/22/24: "...recently completed 4 weeks of ciprofloxacin for prostatitis, however after 2 weeks off of the antibiotics he started having urinary frequency and burning with urination again...was put on an additional two weeks of ciprofloxacin...history of borderline leukopenia, has evaluation with hematology in August...will reach out to urology..." Patient denies recurrence of symptoms. Surgeon's office made aware, Shelbi advised surgeon approved patient proceeding in relation to recent episodes of prostatitis. - cardiology office visit 05/06/24: "...palpitations rarely...sinus arrhythmia with pauses as long as 2.8 seconds...feels well...planning for hip surgery...does not need further cardiac workup prior to his surgery...low risk for cardiac complication perioperatively..." Chart Review Chart Review: Pending: Refer to Additional Notes / Consult section and Patient seen in Pre Admission Testing Teaching & Discussion Pre-Anesthesia Teaching/Discussion Notes: Instructed NPO after midnight before surgery, except medications with 15 cc of water. Medication instructions provided according to the PAT guidelines. History Surgery Operation Date: 09/16/24 07:00 Proposed Procedures p Right Total Hip Arthroplasty - Herber Sawrtz MD Height/Weight Height: 6 ft 2 in Weight: 87.7 kg Allergies Allergy/AdvReac Type Severity Reaction Status Date / Time oxycodone Allergy Mild Hives Verified 08/14/24 11:17 Medications Home Medications Medication Instructions Recorded Confirmed Last Taken azelastine 137 mcg-fluticasone 50 1 spray intranasal BID PRN SINUS 07/25/18 08/14/24 09/25/22 12:00 mcg/spray nasal spray CONGESTION multivitamin 1 tab PO QAM 07/25/18 08/14/24 09/19/22 06:30 albuterol 90 mcg/actuation aerosol 90 mcg inhalation QID PRN 09/06/22 08/14/24 Unknown inhaler Shortness Of Breath fluticasone propionate 50 1 spray intranasal Q12H PRN 09/06/22 08/14/24 09/25/22 12:30 mcg/actuation nasal Allergy Symptoms spray,suspension atorvastatin 20 mg tablet 20 mg PO HS 09/26/22 08/14/24 09/24/22 20:00 alfuzosin 10 mg tablet,extended 10 mg PO HS 07/18/24 08/14/24 Unknown release 24 hr finasteride 5 mg tablet 5 mg PO QAM 08/14/24 08/14/24 Unknown naproxen sodium 220 mg capsule 440 mg PO Q12H PRN Pain 08/14/24 08/14/24 Unknown (Aleve) Past Medical History Medical History BPH (benign prostatic hyperplasia) Degenerative joint disease Hiatal hernia Hip osteoarthritis History of gastroesophageal reflux (GERD) controlled, stable per pt-infrequent globus sensation per pt-denies choking Palpitations hx 09/04/23--followed up with Dr. Betancourt (echo/holter monitor) and was all found to be normal Prostate infection recent diagnosis--06/2024 and was placed on cipro--per pt has been off med for 2 wks now Seasonal allergies rarely uses inhaler Patient denies h/o stroke, seizures, heart attack, heart failure, DM, HTN, blood clots/DVTs or blood transfusions. Exercise / Class Metabolic Activity II 4-5 Yardwork/Stairs/Walk up hill (denies chest discomfort or shortness of breath with one flight of stairs) Past Family History Family History Family/Other No problems noted. Other Depression Leukemia No family history of adverse response to anesthesia Parkinson disease Denies family history of Crohn's disease Colorectal cancer Ulcerative colitis Past Surgical History Surgical History History of arthroscopy X 2 -LEFT KNEE History of carpal tunnel release left wrist History of colonoscopy (07/2018) History of endoscopic sinus surgery History of esophagogastroduodenoscopy (EGD) History of open reduction and internal fixation (ORIF) procedure right wrist History of total left hip arthroplasty (09/26/22) Hx of foot surgery right great toe Past Anesthesia History No Family Hx of Anesthesia Complications and Other (post-op urinary retention after left DANNI) History of PONV No Hx of PONV and No Hx of Motion Sickness Social History Smoking Status: Never smoker Do You Dip or Chew Tobacco: No Hx Alcohol Use: Yes (1 per day) Alcohol type: beer and hard liquor alcohol intake frequency: 0-2 drinks per day Hx Substance Use: No substance use type: does not use Review of Systems Snoring, denies witnessed apneas. Patient denies chest pain, shortness of breath, dyspnea on exertion, fever, chills, cough, or wheezing. Physical Exam Vital Signs Vitals BP 109/71 P 66 TEMP 98.4 SP02 96% on RA RESP 18 Physical Patient resting comfortably in chair in no acute distress, alert and oriented, responding appropriately throughout visit Full cervical extension range of motion without pain TMD 3.5 finger breadths Mallampati Score 2 Dentition: intact, denies chipped or loose teeth, caps/crowns, implants or bridges Lungs: normal respiratory effort. Good air movement, clear throughout to auscult ation, no adventitious breath sounds Cardiac: regular rate and rhythm, no murmurs noted Carotid arteries: negative bruit bilat Lab Results Anesthesia Preop Results Results Anesthesia Widget: WBC 4.94 K/ul (4.8-10.8) 08/24/24 Hgb 14.2 g/dl (14.0-18.0) 08/24/24 Hct 40.4 % (42.0-52.0) L 08/24/24 Plt 236 K/uL (130-400) 08/24/24 Na 142 mmol/L (136-145) 08/24/24 K 4.3 mmol/L (3.5-5.1) 08/24/24 Cl 106 mmol/L (98-107) 08/24/24 CO2 32 mmol/L (21-32) 08/24/24 BUN 23 mg/dl (6-23) 08/24/24 Creat 0.93 mg/dl (0.6-1.4) 08/24/24 Glucose Level 113 mg/dl (70-99(Fasting)) H 08/24/24 PT 10.9 Seconds (9.0-12.0) 08/24/24 PTT 28 Seconds (21-31) 08/24/24 INR 1.0 (0.9-1.1) 08/24/24 Urine Color Yellow 08/24/24 Urine Appearance Clear (Clear) 08/24/24 Urine pH 5.5 (4.5-7.5) 08/24/24 Urine Specific [place] 1.030 (1.000-1.030) 08/24/24 Urine Protein Negative (Negative) 08/24/24 Urine Glucose (UA) Negative (Negative) 08/24/24 Urine Ketones Negative (Negative) 08/24/24 Urine Blood Negative (Negative) 08/24/24 Urine Nitrite Negative (Negative) 08/24/24 Urine Bilirubin Negative (Negative) 08/24/24 Urine Urobilinogen Negative (Negative) 08/24/24 Urine Leukocyte Esterase Negative (Negative) 08/24/24 Blood Type O Positive 08/24/24 Antibody Screen NEGATIVE 08/24/24 Testing Electrocardiogram Date: 08/24/24 Sinus bradycardia with 1st degree AV block, rate 59 bpm Echocardiogram Date: 10/02/23 EF 60% No LV regional wall motion abnormalities No LVH Dilated RV Mildly dilated RA Dilated proximal ascending aorta at 3.8 cm Mild mitral valve regurgitation Mild tricuspid regurgitation
--- NOTE | 2024-09-16 05:42 | History & Physical Bridge Note ---
Date of Service September 16, 2024 History & Physical Bridge Note I have examined the patient, reviewed the History & Physical and in the interval since the performance of the History & Physical I have noted the following changes of clinical significance: consent and site Right hip verified. Hx BPH requiring straight cath hence will stay overnight.no changes noted
[2024-09-16] MEDS ORDERED: BUPIVACAINE 0.5 % 5 MG/1 ML PF 10ML VIAL ONE (06:31)
[2024-09-16] MEDS ORDERED: MIDAZOLAM HCL 1 MG/ML 2ML VIAL ONE ×2 (07:01→09:07)
[2024-09-16] MEDS ORDERED: fentaNYL citrate PF 100 MCG/2 ML VIAL ONE ×2 (07:01→09:18)
[2024-09-16] MEDS: LR 500ML BOLUS, THEN 15ML/HR IV SCH (07:07)
[2024-09-16] MEDS: LR 60ML/HR IV SCH (07:07)
[2024-09-16] MEDS ORDERED: ATROPINE SULFATE 0.1 MG/ML 10ML SYR IV PRN (07:27)
[2024-09-16] MEDS ORDERED: ONDANSETRON INJ 2 MG/ML 2 ML VIAL IV PRN ×2 (07:27→11:35)
[2024-09-16] MEDS ORDERED: fentaNYL citrate PF 100 MCG/2 ML VIAL IV PRN (07:27)
[2024-09-16] MEDS ORDERED: FLUMAZENIL 0.1 MG/1 ML 10 ML VIAL IV PRN (07:27)
[2024-09-16] MEDS ORDERED: NALOXONE HCL 0.4 MG/1 ML VIAL/CARP IV PRN ×2 (07:27→11:35)
[2024-09-16] MEDS ORDERED: ePHEDrine sulfate 50 MG/ML AMP IV PRN (07:27)
[2024-09-16] MEDS ORDERED: PROMETHAZINE HCL 6.25 MG in SODIUM CHLORIDE 0.9% 50 ML IV PRN (07:27)
[2024-09-16] MEDS: TRANEXAMIC ACID 1,000 MG **IV Pre-op IV SCH (08:41)
[2024-09-16] MEDS: ceFAZolin 2000MG 2,000 MG/15 ML SYR IV SCH ×2 (08:56→17:58)
[2024-09-16] MEDS ORDERED: PROPOFOL IV EMULSION 10 MG/ML 20 ML VIAL IV ONE (09:03)
[2024-09-16] MEDS: ORTHO JOINT ANESTHETIC ONE (09:31)
[2024-09-16] MEDS: ROPIV 0.5% 246mg, Ketorolac 30mg, EPINEPHrine 0.5mg in NSS INFIL SCH (09:31)
[2024-09-16] MEDS: TRANEXAMIC ACID 1,000 MG **IV Intra-op IV SCH (09:56)
--- NOTE | 2024-09-16 10:25 | Post Operative Brief Note ---
Immediate Post Op Note Date of Surgery September 16, 2024 Pre & Post Diagnosis Operation Date: 09/16/24 08:50 <No data on this case meets the specified criteria> Osteoarthritis right hip pre and postop diagnosis same I identified the patient and participated in the time-out.: Yes Procedure Operation Date: 09/16/24 08:50 <No data on this case meets the specified criteria> Noncemented right total hip replacement Surgeon Herber Swartz MD [employer] Ángel/Justine Estimated Blood Loss 75 Findings Consistent with Post-Op Diagnosis Severe osteoarthritis right hip Fluids See anesthesia report Complications None
--- NOTE | 2024-09-16 10:30 | Operative Report ---
Post Operative Report Pre & Post Diagnosis Operation Date: 09/16/24 08:50 <No data on this case meets the specified criteria> Osteoarthritis right hip pre and postop diagnosis same I identified the patient and participated in the time-out.: Yes Procedure Operation Date: 09/16/24 08:50 <No data on this case meets the specified criteria> Noncemented right total replacement Surgeon Herber Swartz MD [employer] Ángel[employer]Justine Estimated Blood Loss 75 Findings Consistent with Post-Op Diagnosis Cam impingement osteoarthritis labral tearing Fluids See anesthesia report Specimens Bone pathology Drains None Complications None Indications Failed conservative management x-rays with end-stage disease right hip osteoarthritis Description of Procedure After the patient was appropriate notified site verified consent verified antibiotics confirmed has been given the right lower extremity was prepped and draped in his routine fashion with the patient in the left lateral decubitus position. Everything was padded appropriately care was taken not to affect his left total replacement. Posterior lateral process of the hip was then carried out. Sharp dissection through the skin blunt dissection down to the fascia this was then incised under direct vision. Retractor was care with carefully placed protect the sciatic nerve and a short external rotators were identified released. The capsule was then teed. The hip was then dislocated the femoral neck resected. There was significant disease about the head with cam lesion. The acetabulum had significant hypertrophic synovitis this was all debrided labral tearing was debrided this was all anteriorly and superiorly. There was no major osteophytes on the margin of the acetabulum. Serial reaming was carried up to a 52 and a 52 cup impacted in appropriate anteversion inclination and secured with the 6.5 x 25 screw with excellent purchase. Care was taken to palpate posteriorly there was no posterior penetration. Trial liner was then seated. The femur was then flexed and internally rotated and serial broaching was carried out to a size 3 Actis AC Tis stem. There was high offset. Trial reduction had excellent stability in all planes leg lengths were equal. Was a +5/36 head. The hip was then dislocated all remaining trial elements were then removed the wound soaked in Betadine irrigated and whole limb later seated permanent liner seated permanent head and stem seated the hip was reduced and was stable in all planes leg lengths were equal. Hip was then irrigated 1 final time and closed using #2 Vicryl for the short external rotators and the capsule try to close down some of the space with the quadratus femoris care taken not to tighten the too much to entrap the sciatic nerve this was clear. The IT band and gluteus kerwin fascia were then closed with #2 Vicryl deep fat with #2 Vicryl superficial layer with 2-0 Vicryl injection into the superficial layer occurred with the Ortho mix were roughly 40 cc. Wound was then closed with tyrell. Appropriate dressing applied patient transferred recovery in satisfactory addition he tolerated procedure well. Summary of implants acetabular shell was a 52 cup acetabular shell sector [place] cancellous through 6.5 x 25 dome, 36 x 52 neutral liner 3 high Actis stem 36+5 ceramic head. EBL was roughly 75 cc. Crystalloid per anesthesia. Bone pathology pending. DVT prophylaxis to start tomorrow. Straight cath as needed. Of note he has a history of urinary retention so we can send him home. I attest to the content of the Intraoperative Record and any orders documented therein. Any exceptions are noted below.
--- NOTE | 2024-09-16 10:32 | Discharge Summary ---
Date of Service September 17, 2024 Admission HPI Per Admitting Provider Severe osteoarthritis and pain right hip Principal Diagnosis Osteoarthritis right hip Discharge Data Allergies Allergy/AdvReac Type Severity Reaction Status Date / Time oxycodone Allergy Mild Hives Verified 09/16/24 06:56 Vaccinations None Consultations None Procedures Performed Operation Date: 09/16/24 08:50 <No data on this case meets the specified criteria> Noncemented right total replacement Ordered Studies X-rays bone pathology Diabetes Follow up None Total Time Total Time Spent Total Time Spent (In Minutes): 5 Discharge Plan Discharge Items Patient Disposition: Home - Home Health Services Reason For Visit: Right Hip Degenerative Joint Disease Discharge Diagnosis: Status post right hip replacement for osteoarthritis right hip Condition on Discharge: Good Activity: Per Instructions section Lifting: Wait until after follow-up appointment Bathing: Keep incision dry Sexual Activity: Wait until after follow-up appointment Exercise/Sports: Wait until after follow-up appointment Driving/Machine Use: No driving until cleared by Dr. Swartz Weightbearing: Full weightbearing Weightbearing Comment: with walker Non-emergency contact: Surgeon Call non-emergency contact if: you have any medication questions, your symptoms worsen, your pain is not controlled, your temperature is above 101, your wound has increased redness, your wound has increased drainage and your wound pain has increased Follow-up/Referrals: Brooklyn Carrion, FREDIS [Physician Crew Person] - 10/01/24 10:30 am Nena Wong DO [Primary Care Provider] - Diet: Regular Addtl Attending Provider Instructions: New Medicine: * You will likely be taking one or more of these medicines: 1. Percocet - Take, as directed, when you need it, every four to six hours to control your pain. 2. Iron Sulfate - Take 1x each day for the month after surgery to help you replace the blood lost during surgery. 3. Eliquis - Thins your blood to lessen the chance of forming a blood clot. Take twice daily for 30 days after surgery. No not take any Ibuprofen/Advil/Motrin/Aleve while on Eliquis. * The most common side effects of pain medicine and iron are nausea and constipation. If nausea or constipation is too much of a problem or if you have any questions about your new medicines or doses, call [facility] at . We will try to help you manage these issues. "VERY IMPORTANT TO READ AND REVIEW" Blood Clots and Blood Thinning Medicine: * You are given Eliquis during the immediate post-operative period to lessen the risk of blood clots forming in your legs and/or lungs. Eliquis is usually given for four weeks after surgery. Pain: * The immediate post-operative period after hip replacement surgery is often quite painful. * You are given a prescription for pain medicine. You should take it, as directed, when you need it, especially before physical therapy and before going to bed. Pain that interferes with sleep is very common and can last several months. * You will likely need pain medicine for the first two to four weeks. It will not stop all of the pain. The pain will lessen and as you feel better, you may change to milder pain medicine such as Tylenol. * The most common side effects of pain medicine are nausea and constipation, so don't take more than you need. Physical Therapy: * Follow the "Hip Precautions Instructions." * In some cases, the social sciences research scientist at the hospital will arrange to have a therapist come to your house for the first couple of weeks to help you learn these skills. * You need to practice on your own or with the help of a family member as needed. * When you learn these skills, most of the therapy can be done on your own. Home Exercise: * You were shown a series of exercises in the hospital. Do these exercises three to four times each day including the exercises you were shown in physical therapy. Walking: * Get up and walk several times each day. For the first four weeks, try not to stand or walk for more than one hour at a time. If you do stand or walk for m ore than one hour, you will not hurt anything, but your leg will likely swell. * As you feel comfortable, you may change from the walker or crutches to a cane and then to independent walking. SELF CARE INSTRUCTIONS AFTER TOTAL HIP REPLACEMENT Until the incision and soft tissues around your hip have healed, there is a possibility that the hip prosthesis could dislocate. A. Observe the following precautions to prevent dislocation: 1. Don't bend your hip greater than 90 degrees. 2. Avoid crossing your legs or ankles while standing or lying. 3. Sit with your feet placed 6 inches apart. 4. When sitting, keep your knees below your hips. Sit on a firm surface, avoid deep, soft chairs and couches. Use an elevated toilet seat in the bathroom. 5. Don't bend over at the waist. Use a long handled shoehorn and a sock aid to help you put on your shoes and socks. A handyperson can help you strip picker objects that are too high or too low to reach. 6. Keep car riding to a minimum for at least one month after surgery. B. Your balance may be shaky for a while. Use crutches or a walker until directed by your doctor. C. Use hand rails when walking on stairs. D. Wear low heeled shoes with non-slip soles. E. Be sure that your floors are free of things that could trip you - throw rugs, electrical cords, small objects. Avoid wet and waxed floors, especially with crutches and canes. F. Try to walk several times a day with rest periods between. G. Continue with all the exercises taught to you in the hospital. Again, make walking a part of your daily routine. H. Keep your incision covered at all times. Keep it dry at all times. VERY IMPORTANT TO READ AND REVIEW A. Take Eliquis (blood thinning medications) as directed by your doctor. B. There are a few signs you need to watch for after you are home. If you notice any of the followin. Increased severe hip pain. Some pain is expected especially when you exercise. 2. Increased swelling in your leg or knee; pain or swelling of the calf muscle in either lower leg. 3. Any fluid drainage from the incision. 4. Shortness of breath or chest pain. TEDs/Elastic Stockings: * The white elastic stockings help limit swelling and prevent blood clots from forming in your legs. The more you wear them, the more they work. * Wear them for six weeks. Prevention of Infection: * Take antibiotics one hour before any dental cleaning, dental work, urological procedure, gastrointestinal procedure or any invasive surgery in order to prevent your new joint from getting infected. * You may get the antibiotics from the doctor performing the procedure or we will call in a prescription to the pharmacy of your choice. Call the office for a prescription at least 2 days prior to your appointment. Diet: * You may return to previous diet. Things to Watch For: * Drainage from the incision site that occurs more than one week after your surgery. * Severely increased leg pain or swelling. * Increased redness at the incision site. * Fever above 101 degrees Fahrenheit. * Unusual chest pain or shortness of breath. * Unusual pain or burning with urination. Start your Eliquis tomorrow evening. Take it 2x day x 30 days Keep your dressing in place over the weekend. It can be changed by Home Health on Saturday if needed for soiling. Pending Studies at Discharge: Yes Studies:: bone pathology Stand-Alone Forms: My [facility], Smoking Cessation Medications and DC Order Prescriptions: New hydrocodone-acetaminophen 5-325 mg Tablet 1 - 2 tab PO Q4H PRN (Reason: pain) Qty: 20 0RF docusate sodium 100 mg Capsule 100 mg PO BID 30 Days Qty: 60 0RF Rx Instructions: take while on pain medication Eliquis 2.5 mg Tablet 2.5 mg PO BID 30 Days Qty: 60 0RF Continued alfuzosin 10 mg tablet extended release 24 hr 10 mg PO HS Rx Instructions: administer after the same meal each day multivitamin Tablet 1 tab PO QAM albuterol 90 mcg/actuation Aerosol 90 mcg INHALATION QID PRN (Reason: Shortness Of Breath) fluticasone propionate 50 mcg/actuation [place],Suspension 1 spray INTRANASAL Q12H PRN (Reason: Allergy Symptoms) Rx Instructions: administer into each nostril atorvastatin 20 mg Tablet 20 mg PO HS finasteride 5 mg tablet 5 mg PO QAM azelastine 137 mcg (0.1 %) [place],Non-Aerosol 1 spray INTRANASAL BID Rx Instructions: administer into each nostril Held naproxen sodium [Aleve] 220 mg Capsule 440 mg PO Q12H PRN (Reason: Pain) Hold Instructions: while on Eliquis Admission Data Admit Date/Time: 09/16/24 11:07 Attending Provider: Herber Swartz Admit Provider: Herber Swartz Primary Care Provider: Nena Wong Other Providers: [facility],Home Healthcare
--- NOTE | 2024-09-16 10:32 | Orthopedic Progress Note ---
Date of Service September 16, 2024 Orthopedic Progress Note Patient underwent right total replacement. Had no issues. Denies chest pain shortness of breath fever chills nausea or headache. Vital signs are stable he is afebrile. Postop x-rays pending. Family contacted. Begin DVT prophylaxis tomorrow.
--- NOTE | 2024-09-16 10:42 | Operative Report ---
Post Operative Report Pre & Post Diagnosis Operation Date: 09/16/24 08:50 Pre-Op Diagnosis: Right Hip Degenerative Joint Disease Post-Op Diagnosis: Right Hip Degenerative Joint Disease I identified the patient and participated in the time-out.: Yes Procedure Operation Date: 09/16/24 08:50 Actual Procedures p Right Total Hip Arthroplasty(Right) - Herber Swartz MD Surgeon Herber Swartz MD Practice Professional Ángel/Justine Estimated Blood Loss 75 Findings Consistent with Post-Op Diagnosis Specimens Femoral head Description of Procedure The patient was brought to the operative suite he was placed in the left lateral decubitus position after undergoing anesthesia. Right lower extremity was prepped and draped in the usual sterile fashion. A surgical timeout was performed. The patient underwent a right total hip arthroplasty, please see Dr. Swartz's operative report for full details. I was present and assisted with patient positioning, limb positioning, soft tissue retraction, hemostasis, hardware placement, wound closure, postoperative dressing placement. The patient was awakened and taken to the recovery room in stable condition. I attest to the content of the Intraoperative Record and any orders documented therein. Any exceptions are noted below.
--- NOTE | 2024-09-16 11:02 | XRay Report ---
XR pelvis 1-2V routine CLINICAL HISTORY: S/P R DANNI COMPARISON: Pelvis and right hip radiographs August 24, 2024. FINDINGS: Alignment of the total right hip arthroplasty is anatomic. There is no periprosthetic frac ture or unexpected radiopaque foreign body. There are skin tyrell. There is an acetabular screw. Lef t hip arthroplasty is incidentally noted. IMPRESSION: Expected findings following total right hip arthroplasty. ACT 112: Negative or not required by law. Electronically signed by: Jose Rosa M.D. 09/16/2024 11:01 AM
[2024-09-16] MEDS ORDERED: VANCOMYCIN CONSULT ACTIVE PRN (11:08)
--- NOTE | 2024-09-16 11:22 | Anesthesiology Progress Note ---
Date of Service September 16, 2024 Anesthesia Post Procedure Vital Signs Vital Signs: Temp Pulse Resp BP Pulse Ox O2 Del Method O2 Flow Rate 09/16/24 11:15 36.4 C L 61 12 121/71 95 Room Air 09/16/24 11:05 57 L 15 123/66 93 Room Air 09/16/24 10:55 58 L 24 127/62 100 Room Air 09/16/24 10:45 62 13 131/65 99 Room Air 09/16/24 10:39 36.0 C L 61 18 118/61 100 Oxymask 6 09/16/24 07:00 37 C 79 18 133/83 97 Room Air Transfer of Care Handoff Completed per policy Notes Mental Status: alert / awake / arousable Patient Amnestic to Procedure: Yes Nausea / Vomiting: adequately controlled Pain: adequately controlled Airway Patency, RR, SpO2: stable & adequate BP & HR: stable & adequate Hydration State: stable & adequate Neuraxial Anesthesia: was administered and sensory block is resolving Anesthetic Complications: no major complications apparent
[2024-09-16] MEDS ORDERED: MAGNESIUM HYDROXIDE SUSP 30 ML UDC PO PRN (11:35)
[2024-09-16] MEDS ORDERED: HYDROmorphone INJ 0.5 MG/0.5 ML SYR IV PRN (11:35)
[2024-09-16] MEDS ORDERED: TAMSULOSIN HCL 0.4 MG CAP PO PRN (11:35)
[2024-09-16] MEDS ORDERED: HYDROmorphone INJ 1 MG/ML SYRINGE IV PRN (11:35)
[2024-09-16] MEDS ORDERED: bisacodyL 10 MG SUPP PR PRN (11:35)
[2024-09-16] MEDS ORDERED: METOCLOPRAMIDE HCL INJ 5 MG/ML 2 ML VIAL IV PRN (11:35)
[2024-09-16] MEDS ORDERED: diphenhydrAMINE 50 MG/ML VIAL IV PRN (11:35)
[2024-09-16] MEDS ORDERED: FLUTICASONE PROPIONATE NA SPR 16 GM BTL NAE PRN (11:35)
[2024-09-16] MEDS ORDERED: ALBUTEROL HFA 8 GM INHALER INH PRN (12:01)
[2024-09-16] MEDS: KETOROLAC TROMETHAMINE 15 MG/ML VIAL IV SCH (12:35)
[2024-09-16] MEDS ORDERED: ACETAMINOPHEN 500 MG TAB PO PRN (13:25)
[2024-09-16] MEDS ORDERED: HYDROmorphone HCL 2 MG TAB PO PRN (13:26)
--- NOTE | 2024-09-16 13:32 | Orthopedic Progress Note ---
Date of Service September 16, 2024 Assessment & Plan Admission and Anticipated Discharge Date Admission Date: September 16, 2024 Orthopedic Progress Note Postop check status post right total replacement. X-rays look good. Denies chest pain shortness of breath fever chills nausea or headache. Vital signs are stable he is afebrile. Neurovascular check still limited by spinal. Wound dressing clean dry and in tact. Assessment doing well continue to keep in bed until his neurologic function is returned so that he can get up and start walking around. His x-rays look good he can be weightbearing as tolerated with his walker. He has hydrocodone ordered. He does not have any allergic reaction to that it was just Percocet. As needed use of IV Dilaudid if needed. Toradol as well. Plain Tylenol as well. Will check tomorrow morning and potentially discharge after PT OT.
[2024-09-16] MEDS: HYDROCODONE/ACETAMOPHEN 5/325MG TAB PO PRN (15:33)
[2024-09-16] MEDS: VANCOMYCIN HCL 1,750 MG in SODIUM CHLORIDE 0.9% 500 ML IV ONE (16:27)
--- NOTE | 2024-09-16 18:13 | Orthopedic Progress Note ---
Date of Service September 16, 2024 Assessment & Plan Admission and Anticipated Discharge Date Admission Date: September 16, 2024 Orthopedic Progress Note Evening around checkup. He is doing well. He is ambulating well. He is voiding. Did require to be straight cathed once. He is eating and drinking well. Denies shortness of breath fever chills nausea vomiting or headache. Vital signs are stable he is afebrile. Neurovascular check femoral sciatic nerve is normal. Hip is located. Wound dressing clean dry and intact. Calves nontender. Assessment doing well status post right total hip replacement. Continue with care plan protocol for hip replacement. Initiate anticoagulation tomorrow. Change dressing tomorrow.
--- OUTSIDE RECORDS SUMMARY | 2024-09-16 18:20 | External Medical Summary | Continuity of Care Document ---
Author Name Unknown Organization [facility] [address] [address] [place] [id number] Care Team Providers Care Route Sales Representative Name Role Phone Nena Wong Primary Care Physicia n [phone] Encounter [facility] [id number] Date(s): 09/09/24 - 09/09/24 [facility] 0 [facility] 207 [facility] [address] [address] [phone] Encounter Diagnosis Preoperative examination(Discharge Diagnosis) - 09/07/24 Elevated LDL cholesterol level(Discharge Diagnosis) - 09/07/24 Body mass index [BMI] 25.0-25.9, adult(Discharge Diagnosis) - 09/09/24 Leukopenia(Discharge Diagnosis) - 09/09/24 BPH (benign prostatic hypertrophy)(Discharge Diagnosis) - 09/09/24 Osteoarthritis of right hip(Discharge Diagnosis) - 09/07/24 Right hip pain(Discharge Diagnosis) - 09/07/24 Discharge Disposition: Home or Self Care Attending Physician: DO Wong Gretchen Elizabeth Referring Physician: DO Wong Gretchen Elizabeth Allergies, Adverse Reactions, Alerts Substance Criticality Severity Reaction Reaction Severity Status Cats Active Dogs Active Dust mite Active Grass Active Ragweed Active Trees Active Percocet 5/325 itching, no rash Active oxyCODONE Unable to assess criticality Mild Hives Active Assessment and Plan Extracted from: Title:preop Author:DO Wong Gretchen Eliz abeth Date:09/09/24 1.Preoperative examination Patient medically optimized to proceed with surgical interventionof total right hip replacement with Dr. Swartz.This is a intermittentrisk surgery, patienthas toleratedanesthesia well, there is no bleedingissues, he is not currently on substances. Patient doesendorseadverse reaction when taking oxycodone,he has communicated this with the surgical team. We reviewed the importance of a bowel regimen duringopioid therapy, trial of miralax daily with occasional sennakot.Patient anticipates couple months of rehabilitation. Will be placed on Plavix postoperatively. Patient saw cardiology [id number] endorse that he is not does not need further cardiac workup prior to surgerydue to his low riskstatusand absence of any symptoms. 2.Right hip pain 3.Osteoarthritis of right hip Chronic history of worseningright hip degenerative joint disease,patient had a left total hipreplacement in 09/2022withsuccessful recovery. 4.Elevated LDL cholesterol level Chronic, mild on last lipid panel, LDL 111 04/2024, patient remains on atorvastatin 20 mg daily 5.Leukopenia Chronic, mild,patient follows with hematology,overall reassuringthat this is a normal variant,will continue to monitor. 6.BPH (benign prostatic hypertrophy) Active, patient on finasterideandalfuzosinfor BPH,discussed importance of hydration while using opiates and bowel regimen,patient has discussed withanesthesiapossibility of needing catheterization during surgery. Immunizations Given and Recorded Vaccine Date Status Refusal Reason influenza virus vaccine, inactivated 07/19/23 Give n influenza virus vaccine, inactivated 08/01/22 Tramaine rded influenza virus vaccine, inactivated 07/21/21 Tramaine rded influenza virus vaccine, inactivated 08/21/20 Tramaine rded influenza virus vaccine, inactivated 07/02/18 Give n influenza virus vaccine, inactivated 1 09/04/17 Re corded influenza virus vaccine, inactivated 09/11/16 Tramaine rded influenza virus vaccine, inactivated 2 09/05/16 Re corded influenza virus vaccine, inactivated 3 09/05/15 Re corded influenza virus vaccine, inactivated 4 08/31/14 Re corded influenza virus vaccine, inactivated 08/04/14 Tramaine rded influenza virus vaccine, inactivated 08/12/13 Tramaine rded influenza virus vaccine, inactivated 07/18/12 Give n pneumococcal 20-valent conjugate vaccine 02/01/23 Given SARS-CoV-2 mRNA (Pfizer 12+) bivalent 5 07/09/22 R ecorded SARS-CoV-2 (COVID-19) mRNA-1273 vaccine 6 02/15/22 Recorded SARS-CoV-2 (COVID-19) mRNA BNT-162b2 vax 7 09/28/21 Recorded SARS-CoV-2 (COVID-19) mRNA BNT-162b2 vax 8 02/08/21 Recorded SARS-CoV-2 (COVID-19) mRNA BNT-162b2 vax 9 01/18/21 Recorded zoster vaccine, inactivated 10 06/04/18 Recorded zoster vaccine, inactivated 12/12/17 Recorded zoster vaccine live 12/14/17 Recorded tetanus toxoids-diphtheria, Td (Adult) 12/14/17 Re corded tetanus toxoids-diphtheria, Td (Adult) 07/27/99 Re corded human papillomavirus vaccine 11 12/14/17 Recorded human papillomavirus vaccine 12 12/12/17 Recorded tetanus/diphtheria/pertuss, acel (Tdap) 04/09/07 R ecorded measles/mumps/rubella virus vaccine 10/21/59 Recor ded 1Result Comment: 2017-12-11: Historical information-source unspecified 2Result Comment: 2017-12-11: Historical information-source unspecified 3Result Comment: 2017-12-11: Historical information-source unspecified 4Result Comment: 2017-12-11: Historical information-source unspecified 5Result Comment: 2022-09-20: Historical information-source unspecified 6Result Comment: 2022-09-20: Historical information-source unspecified 7Result Comment: 2022-09-20: Historical information-source unspecified 8Result Comment: 2021-09-18: Historical information-source unspecified 9Result Comment: 2021-09-18: Historical information-source unspecified 10Result Comment: 2020-10-03: Historical information-source unspecified 11Result Comment: 2020-10-03: Historical information-source unspecified 12Result Comment: 2020-10-03: Historical information-source unspecified Medications albuterol CFC free 90 mcg/inh MDI Start: 04/14/21 8:19:00 AM EDT, 1 puff, inhaled, qid, PRN: as needed for wheezing Start Date: 04/14/21 Status: Ordered alfuzosin 10 mg oral tablet, extended release Start: 09/18/21 10:01:00 AM EST, 1 tab, PO, Daily Start Date: 09/18/21 Status: Ordered amoxicillin 500 mg oral capsule Start: 07/10/24 1:03:00 PM EDT, 4 cap, PO, As indicated, Disp# 4 cap, Refills: 3, one hour before dental procedures as directed, Pharmacy: [id number] Start Date: 07/10/24 Status: Ordered atorvastatin 20 mg oral tablet Start: 06/11/24 2:25:00 PM EDT, 1 tab, PO, Daily, Disp# 90 tab, Refills: 3, Pharmacy: [facility] Start Date: 06/11/24 Status: Ordered azelastine nasal 137 mcg/inh spray Start: 07/02/11 2:06:00 PM EDT, 1 spray, intranasal, bid, PRN: as needed for allergy symptoms Start Date: 07/02/11 Status: Ordered finasteride 5 mg oral tablet Start: 12/11/17 8:21:00 AM EST, 1 tab, PO, Daily, Disp# 90 tab, other Start Date: 12/11/17 Status: Ordered fluticasone nasal 27.5 mcg/inh spray Start: 07/02/11 2:07:00 PM EDT, 1 spray, intranasal, Daily, PRN: allergy symptoms Start Date: 07/02/11 Status: Ordered triamcinolone 0.025% topical cream Start: 04/14/21 8:18:00 AM EDT, 1 appl, topical, bid Start Date: 04/14/21 Status: Ordered Mental Status 09/09/24 Barriers to Learning one year None evide nt Mandatory Health Literacy Documentation Yes Health Literacy Communication Barriers N ever Primary Language Sierra Leonean Problem List Condition Confirmation Course Effective Dates Status H ealth Status Informant Acquired dilation of ascending aorta and aortic root Confirmed Active ALLERGIC RHINITIS 1 Confirmed Active Trace aortic valve regurgitation Confirmed Active Hand arthritis Confirmed Active Lumbar facet arthropathy Confirmed Active BPH (benign prostatic hypertrophy) Confirmed Active DJD (degenerative joint disease) Confirmed Active Elevated PSA Confirmed Active Erectile dysfunction Confirmed Active Exposure to toxic substance Confirmed Active Exposure to potentially hazardous chemical Confirmed Active 1st degree AV block Confirmed Active Flank pain Confirmed Active GERD (gastroesophageal reflux disease) Confirmed Active Globus sensation Confirmed Active Status post left hip replacement Confirmed Active S/P total left hip arthroplasty Confirmed Active Hyperlipidemia Confirmed 07/18/12 Active Hypospadias 2 Confirmed Active Tendinopathy of left rotator cuff Confirmed Active Insomnia Confirmed Active Leukopenia Confirmed Active Lymphocytopenia Confirmed Active Mild mitral insufficiency Confirmed Active Mild tricuspid insufficiency Confirmed Active Nasal septal perforation 3 Confirmed Active Nocturia Confirmed Active Pain in finger of right hand Confirmed Active Palpitation Confirmed Active Bilateral primary osteoarthritis of hip Confirmed Active Seborrheic keratosis 4 Confirmed Active Skin lesion Confirmed Active Testicular mass Confirmed Active Hallux rigidus, right foot Confirmed Active Triangular fibrocartilage tear Confirmed Active Varicose veins of legs Confirmed Active 1conjunctivitis; s/p immunotherapy 2mild unrepaired 3past septoplasty 4multiple Diagnosis Diagnosis Type Effective Dates Health Status Clinical Service Informant Osteoarthritis of right hip Discharge Diagnosis 09/07/24 Non-Specified Preoperative examination Discharge Diagnosis 09/07/24 Non-Specified Right hip pain Discharge Diagnosis 09/07/24 Non-Specified Elevated LDL cholesterol level Discharge Diagnosis 09/07/24 Non-Specified Body mass index [BMI] 25.0-25.9, adult Discharge Diagnosis 09/09/24 Non-Specified BPH (benign prostatic hypertrophy) Discharge Diagnosis 09/09/24 Non-Specified Leukopenia Discharge Diagnosis 09/09/24 Non-Specified Procedures Procedure Date Related Diagnosis Body Site Status Total replacement of left hip joint 1 09/26/22 Completed X-ray wrist RT 2 08/08/18 Complete d Colonoscopy 3 07/28/18 Completed Hip X-ray 4 06/02/18 Completed Foot X-ray 5 12/20/17 Completed MRI of prostate 6 07/26/17 Complet ed Fine needle biopsy of prostate 7 08/03/15 Completed Arthrodesis of scapholunate joint 12/08/13 Completed Fine needle biopsy of prostate 8, 9 10/24/11 Completed Colonoscopy normal 2007 Comple sergey hemorrhoid surgery 2004 Comple sergey Rhinoplasty 1980 Completed left knee arthroscopy 1979 Com pleted Meniscectomy of knee 1977 Comp leted Anal fissurectomy Complet ed Hemorrhoidectomy Complete d left carpal tunnel release Completed left lumbar radiofrequency rhizotomy Completed right hallux rigidus surgery Completed 1history of see scanned OR report 21. moderate dorsal wrist soft tissue swelling without acute fracture 2. Demineralized appearance of the bones with degenerative changes as above 3. Stable postoperative changes of the wrist 3-the entire examined colon is normal -no specimens collected 4moderate degenerative changes of hips bilaterally no acute process 5Right lateral foot view- snall osicle dorsal to the first metatarsal neck and anterior ankle exostosis. bilateral foot: anatomical fusion of distal interphlangangeal joint of the fith digit. hammertoe deformities bilertally and symmetically. more diagnonsis in form 6Impression: 1. No suspicious lesions for targeted biopsy. 2. Benign prostatic hyperplasia. 3. Right inguinal hernia is noted contatining the right testicle. 7neg. 8Left base, right base, right mid, right apex, right anterior: benign, no neoplasm. Left mid, left apex: benign with mild chronic inflammation, no neoplasm. Left anterior: atypical glands, intraepithelial neoplasia. 9Pathology report; Benign prostate tissue Vital Signs Most recent to oldest [Reference Range]: 1 Height 185.8 cm (09/09/24 12:55 PM) Patient Weight 89.6 kg (09/09/24 12:55 PM) Body Mass Index 25.95 kg/m2 (09/09/24 12:55 PM) Temperature [36.5-37.9 DegC] 26.6 DegC *LOW* (09/09/24 12:55 PM) Heart Rate 73 bpm (09/09/24 12:55 PM) Respiratory Rate 18 br/min (09/09/24 12:55 PM) Blood Pressure 114/68mmHg (09/09/24 12:55 PM) Cuff Pulse Pressure 46 mmHg (09/09/24 12:55 PM) Social History Social History Type Response Smoking Status Never smoked cigaret kvng Sex Male Sex Representation Male (finding) [facility] Outpt Note * DO Wong Gretchen Elizabeth: PERFORM Event Display: [facility]CM Outpt Note Authored Date: [id number] Assessment/Plan 1.Preoperative examination Patient medically optimized to proceed with surgical interventionof total right hip replacement with Dr. Swartz.This is a intermittentrisk surgery, patienthas toleratedanesthesia well, there is no bleedingissues, he is not currently on substances. Patient doesendorseadverse reaction when taking oxycodone,he has communicated this with the surgical team. We reviewed the importance of a bowel regimen duringopioid therapy, trial of miralax daily with occasional sennakot.Patient anticipates couple months of rehabilitation. Will be placed on Plavix postoperatively. Patient saw cardiology [id number] endorse that he is not does not need further cardiac workup prior to surgerydue to his low riskstatusand absence of any symptoms. 2.Right hip pain 3.Osteoarthritis of right hip Chronic history of worseningright hip degenerative joint disease,patient had a left total hipreplacement in 09/2022withsuccessful recovery. 4.Elevated LDL cholesterol level Chronic, mild on last lipid panel, LDL 111 04/2024, patient remains on atorvastatin 20 mg daily 5.Leukopenia Chronic, mild,patient follows with hematology,overall reassuringthat this is a normal variant,will continue to monitor. 6.BPH (benign prostatic hypertrophy) Active, patient on finasterideandalfuzosinfor BPH,discussed importance of hydration whileusing opiates and bowel regimen,patient has discussed withanesthesiapossibility of needing catheterization during surgery. Attestation Total physician time spent on day of encounter with patient including pre-visit planning, chart review, [id number] discussion, education,and documentation: 32minutes Chief Complaint pre op History of Present Illness Preoperative evaluation Requested by/Surgeon: Dr. Conroy Planned surgery:intermediate risk (intraperitoneal, intrathoracic, CEA, head/neck, ortho, prostate) Right DANNI- 09/16/25 Planned anesthesia:general Exercise tolerance:4 METs (climbing 1 flight, walking up hill, level ground @ 4mph, heavy house work) Bleeding tendency/history: nohistory blood clots, no bleedingconcerns Substance use per social history in EHR - none - noted allergy to oxycodone Prior response to anesthesia:no side effects Revised Cardiac Risk Index: Score [0_] [_] High Risk Surgery [_] Ischemic Heart Disease [_] History of CHF [_] History of cerebrovascular disease [_] Insulin therapy for DM [_] Pre-op Cr >2 Patient denies any pulmonary symptoms, no shortness of breath, coughing, wheezing. In addition, patient denies any cardiac symptoms, nochest pain, palpitations, or shortness of breath with or without exertion. Review of Systems Pertinent positives and negatives as stated in history of present illness. Physical Exam Vitals & Measurements T:26.6C HR:73(Monitored) RR:18 BP:114/68 SpO2:96% HT:185.8cm WT:89.600kg(Dosing) WT:89.6kg BMI:25.95 PHQ2 Data(Data Documented on:09/09/2024 12:54) Emotional health assessment NEGATIVE General:Alert and oriented, no acute distress HEENT:Normocephalic,atraumatic, conjunctiva clear Cardiovascular:Normal rate, regular rhythm, no murmur, no gallop, +S1/S2, no S3/S4 Respiratory:Lungs clear bilaterally to auscultation, respirations non- labored, breath sounds equal, no rhonchi, no rales Gastrointestinal: Normal bowel sounds Psych:Mood and affect congruent. 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 ALLERGIC RHINITIS Bilateral primary osteoarthritis of hip BPH (benign prostatic hypertrophy) DJD (degenerative joint disease) Elevated PSA Erectile dysfunction Exposure to potentially hazardous chemical Exposure to toxic substance Flank pain GERD (gastroesophageal reflux disease) Globus sensation Hallux rigidus, right foot Hand arthritis Hyperlipidemia Hypospadias Insomnia Leukopenia Lumbar facet arthropathy Lymphocytopenia Mild mitral insufficiency Mild tricuspid insufficiency Nasal septal perforation Nocturia Pain in finger of right hand Palpitation S/P total left hip arthroplasty Seborrheic keratosis Skin lesion Status post left hip replacement Tendinopathy of left rotator cuff Testicular mass Trace aortic valve regurgitation Triangular fibrocartilage tear Varicose veins of legs Resolved ANAL FISSURE Arthritis of both feet Arthropathy Atypical nevus Bunion of right foot Chronic hip pain Fe deficiency anemia HEMORRHOIDS NECK PAIN Need for prophylactic vaccination and inoculation against influenza Nodule of flexor tendon sheath Onychomycosis of toenail Pain in wrist Pes planus of both feet Plantar wart, left foot Pre-op exam Sinus Sprain of scapholunate ligament Swelling of joint of right wrist Tendinopathy of patella. Tendonitis, patellar Tennis elbow Tenosynovitis of wrist Traumatic arthropathy of the hand Traumatic arthropathy, right wrist Trigger finger WBC decreased Weight disorder Procedure/Surgical History Total replacement of left hip joint| Service Date: 09/26/2022X-ray wrist RT| Service Date: 08/08/2018Colonoscopy| Service Date: 07/28/2018Hip X- ray| Service Date: 06/02/2018Foot X-ray|Service Date: 12/20/2017MRI of prostate| Service Date: 07/26/2017Fine needle biopsy of prostate| Service Date: 08/03/2015rthrodesis of scapholunate joint| Service Date: 12/08/2013Fine needle biopsy of prostate| Service Date: 10/24/2011Colonoscopy normal| Service Date: 2007hemorrhoid surgery| Service Date: 2004Rhinoplasty| Service Date: 1980left knee arthroscopy| Service Date: 1979Meniscectomy of knee| Service Date: 1977le carpal tunnel releaseright hallux rigidus surgeryleft lumbar radiofrequency rhizotomyAnal fissurectomyHemorrhoidectomy Medications albuterol(albuterol CFC free 90 mcg/inh MDI), 1 puff, inhaled, qid, PRN alfuzosin(alfuzosin 10 mg oral tablet, extended release), 10 mg= 1 tab, PO, Daily amoxicillin(amoxicillin 500 mg oral capsule), 2000 mg= 4 cap, PO, As indicated, 3 refills atorvastatin(atorvastatin 20 mg oral tablet), 1 tab, PO, Daily azelastine nasal(azelastine nasal 137 mcg/inh spray), 1 spray, intranasal, bid, PRN finasteride(finasteride 5 mg oral tablet), 5 mg= 1 tab, PO, Daily fluticasone nasal(fluticasone nasal 27.5 mcg/inh spray), 1 spray, intranasal, Daily, PRN triamcinolone topical(triamcinolone 0.025% topical cream), 1 appl, topical, bid Allergies oxyCODONE (Mild)Hives Cats Dogs Dust mite Grass Percocet 5/325itching, no rash Ragweed Trees Social History Smoking Status Never smoked cigarettes Alcohol - No Risk Use:Current Type:Beer, Wine, Liquor Frequency:Daily Average drinks per episode in last year:1 Employment/School - No Risk Status:Employed, [employer] Description:teaches in college of business at [employer] Exercise - Regular exercise Duration (average number of minutes):35 Times per week:5-6 times/week Exercise type:Walking, Aerobics, Running, Weight lifting - Comments: walks 1 hr/d, has dropped 15 lb Home/Environment - No Risk Lives with:Spouse Living situation:Home/Independent Substance Abuse - Denies Substance Abuse Tobacco - Denies Tobacco Use Use:Never smoker Family History Depression: Father. Leukemia: Mother. Parkinson disease: Father. Suicide attempt: Father. Health Status Family Member(s) Brother: History is negative Family Member(s) Relationship: Mother, Age: 54 Years, Cause: leukemia Relationship: Father, Age: 88 Years, Cause: Parkinsons Immunizations Vaccine Date Status influenza virus vaccine, inactivated 07/19/2023 Given pneumococcal 20-valent conjugate vaccine 02/01/2023 Given influenza virus vaccine, inactivated 08/01/2022 Recorded SARS-CoV-2 mRNA (Pfizer 12+) bivalent 07/09/2022 Recorded Comments : 2022-09-20: Historical information-source unspecified SARS-CoV-2 (COVID-19) mRNA-1273 vaccine 02/15/2022 Recorded Comments : 2022-09-20: Historical information-source unspecified SARS-CoV-2 (COVID-19) mRNA BNT-162b2 vax 09/28/2021 Recorded Comments : 2022-09-20: Historical information-source unspecified influenza virus vaccine, inactivated 07/2021 Recorded SARS-CoV-2 (COVID-19) mRNA BNT-162b2 vax 02/08/2021 Recorded Comments : 2021-09-18: Historical information-source unspecified SARS-CoV-2 (COVID-19) mRNA BNT-162b2 vax 01/18/2021 Recorded Comments : 2021-09-18: Historical information-source unspecified influenza virus vaccine, inactivated 08/2020 Recorded influenza virus vaccine, inactivated 07/02/2018 Given zoster vaccine, inactivated 06/04/2018 Recorded Comments : 2020-10-03: Historical information-source unspecified zoster vaccine live 12/14/2017 Recorded tetanus toxoids-diphtheria, Td (Adult) 12/14/2017 Recorded human papillomavirus vaccine 12/14/2017 Recorded Comments : 2020-10-03: Historical information-source unspecified zoster vaccine, inactivated 12/12/2017 Recorded human papillomavirus vaccine 12/12/2017 Recorded Comments : 2020-10-03: Historical information-source unspecified influenza virus vaccine, inactivated 09/04/2017 Recorded Comments : 2017-12-11: Historical information-source unspecified influenza virus vaccine, inactivated 09/11/2016 Recorded influenza virus vaccine, inactivated 09/05/2016 Recorded Comments : 2017-12-11: Historical information-source unspecified influenza virus vaccine, inactivated 09/05/2015 Recorded Comments : 2017-12-11: Historical information-source unspecified influenza virus vaccine, inactivated 08/31/2014 Recorded Comments : 2017-12-11: Historical information-source unspecified influenza virus vaccine, inactivated 08/04/2014 Recorded influenza virus vaccine, inactivated 08/12/2013 Recorded influenza virus vaccine, inactivated 07/18/2012 Given tetanus/diphtheria/pertuss, acel (Tdap) 04/09/2007 Recorded tetanus toxoids-diphtheria, Td (Adult) 07/27/1999 Recorded measles/mumps/rubella virus vaccine 1960 Recorded Recommendations Health Maintenance Pending(in the next year) OverDue Adult Influenza Vaccine due04/19/24and every 1year Due Adult Social Determinants of Health Screening due09/09/24Unknown Frequency Hepatitis C Screening due09/09/24One-time only Satisfied(in the past 1 year) Satisfied Body Mass Index on09/09/24.Satisfied by ANABEL [facility] [place] Electronic Signature on File Electronically Reviewed/Signed by: Nena Wong D.O. Author Signature Dt/Tm:09/09/2024 05:38 PM Department of Family Medicine [facility] Patient Care team information Care Team Personnel Name: MD Gilmar, Tray Sun Position: Physician - Family Med Member Role: Lifetime Relationship Address: [address] [place] [address] [place] Name: MD Wiliam, Sp Zacarias Position: Physician - Sports Medicine [place] Member Role: Lifetime Relationship Address: [address] [place] [address] [place] Name: DO Wong Gretchen Elizabeth Position: Physician - Family Med Member Role: Primary Care Provider Address: [address] [place] [address] [place] Care Team Related Persons Name: BLAISE BARNETT Name: BLAISE BARNETT"
[2024-09-16] MEDS ORDERED: NON-FORMULARY MEDICATION (Alfuzosin 10 mg tablet extended release 24 hr) PO SCH (21:00)
[2024-09-16] MEDS: DOCUSATE SODIUM 100 MG CAP PO SCH (21:18)
[2024-09-16] MEDS: ATORVASTATIN 20 MG TAB PO SCH (21:19)
[2024-09-16] MEDS: SENNA 8.6 MG TAB PO SCH (21:19)
[2024-09-17 06:40] LABS: Basophils # (auto) 0.04 K/uL (0.00-0.20); Basophils % (auto) 0.6 %; Eosinophils # (auto) 0.06 K/uL (0.00-0.50); Eosinophils % (auto) 0.8 %; Hematocrit (blood only) 39.6 % (42.0-52.0); Hemoglobin 13.6 g/dl (14.0-18.0); Immature Granulocytes # (auto) 0.04 K/uL (0.01-0.20); Immature Granulocytes % (auto) 0.6 %; Lymphocytes # (auto) 0.43 K/uL (1.20-3.40); Mean Corpuscular Hemoglobin 30.8 pg (25.0-34.0); Mean Corpuscular Hgb Conc 34.3 g/dL (32.0-36.0); Mean Corpuscular Volume 89.6 fL (80.0-100.0); Mean Platelet Volume 9.6 fL (9.4-12.4); Monocytes # (auto) 0.64 K/uL (0.11-0.59); Monocytes % (auto) 8.9 %; Neutrophils # (auto) 6.01 K/uL (1.40-6.50); Neutrophils % (auto) 83.1 %; Platelet Count 209 K/uL (130-400); RDW Coefficient of Variation 13.1 % (11.5-14.5); RDW Standard Deviation 43.1 fL (36.4-46.3); Red Blood Count 4.42 M/uL (4.70-6.10); White Blood Count 7.22 K/ul (4.8-10.8)
[2024-09-17 07:00] LABS: Creatinine Clr Calc Pharmacy 114.2 ml/min; Potassium 4.1 mmol/L (3.5-5.1)
--- NOTE | 2024-09-17 07:31 | Orthopedic Progress Note ---
Date of Service September 17, 2024 Assessment & Plan Admission and Anticipated Discharge Date Admission Date: September 16, 2024 Orthopedic Progress Note Postop day #1 status post right total replacement. Patient is doing well. Denies chest pain shortness of breath fever chills nausea vomit or headache. Vital signs are stable he is afebrile. Neurovascular check femoral sciatic nerve is intact. Calves are nontender. Wound dressing changed today. Had no drainage. Dressing reapplied. A.m. labs hematocrit 39.6. Electrolytes within normal limits. Assessment doing well status post right total hip replacement done yesterday. Will discharge to home today after PT OT and home services. Will initiate anticoagulation today. Prescriptions were given preop. Follow-up in the office in 2 weeks.
[2024-09-17 07:37] VITALS: BP 142/77; PULSE 80; RESP 16; TEMP 98.2; O2SAT 97
[2024-09-17] MEDS: AZELASTINE HCL 0.1% NASAL 200 SPRAYS/27,400 MCG BTL NS SCH (08:17)
[2024-09-17] MEDS: CIPROFLOXACIN 500MG HOME PACK PO ONE (08:18)
[2024-09-17] MEDS: MULTIVITAMIN TAB PO SCH (08:18)
[2024-09-17] MEDS: APIXABAN 2.5 MG TAB PO SCH (08:19)
[2024-09-17] MEDS: dexAMETHasone 4 MG TAB PO SCH (08:19)
[2024-09-17] MEDS: CeleBREX 200 MG CAP PO SCH (08:20)
[2024-09-17] MEDS: FINASTERIDE 5 MG TAB PO SCH (08:20)
== END 2024-09-17 09:57 | disposition home health service (06) | DRG 470 ==
LOC: ASU 06:30 → INTOOBSV 11:07 → 3E 11:07